=== PATIENT | female | born 1990 | race Caucasian/White ===

== ENCOUNTER 2021-03-07 11:57 | Emergency (ER) | payer OTHER ==
[~2021-03-07] VITALS: Ht 162.6 cm; Wt 68.2 kg
[2021-03-07 12:50] LABS: COVID AG,FIA SOURCE NASOPHARYNGEAL
[2021-03-07 13:15] VITALS: BP 135/72
== END 2021-03-07 13:39 | disposition home or self-care (01) ==
LOC: EMS 12:03
DX: Z20.822 Contact with and (suspected) exposure to COVID-19 (principal)
CPT/HCPCS: 99283

== ENCOUNTER 2023-10-23 01:26 | Emergency (ER) | payer OTHER | END 2023-10-23 02:00 | disposition left against medical advice (07) | LOC: EMS 01:43 | DX: Z53.21 Procedure and treatment not carried out due to patient leaving prior to being seen by health care provider (principal); T40.415A Adverse effect of fentanyl or fentanyl analogs, initial encounter; Y92.89 Other specified places as the place of occurrence of the external cause | CPT/HCPCS: 99281; Z7502 ==